=== PATIENT | female | born 1990 | race Caucasian/White ===

== ENCOUNTER → 2016-09-01 | Outpatient (CLI) | payer OTHER ==
[2016-09-01 12:49] LABS: Glucose 85 mg/dL (74-99); Non-African American GFR(MDRD) >60 (>60 ml/min/1.73 sqM)
[2016-09-01 12:58] LABS: CH 28.4; CHCM 33.1; HCT 41.2 % (34.0-46.0); HDW 2.36; HGB 13.6 gm/dL (11.4-16.0); MCH 28.4 pg (25.0-35.0); MCHC 33.1 g/dL (31.0-37.0); Mean Platelet Volume 6.8; RBC 4.79 m/uL (3.80-5.40); RDW 13.2 % (11.5-15.5); WBC 8.3 k/uL (3.8-10.6)
[2016-09-01 13:20] LABS: Hepatitis B Surface Ag Index 0.07
== END | disposition home or self-care (01) ==
LOC: LABWHC1 11:57
PROVIDERS: ATTEND Obstetrics & Gynecology
DX: Z34.01 Encounter for supervision of normal first pregnancy, first trimester (principal); Z3A.00 Weeks of gestation of pregnancy not specified
CPT/HCPCS: 36415; 82565; 82947; 85027; 86762; 86780; 86850; 86900; 86901; 87340

== ENCOUNTER → 2016-11-08 | Outpatient (CLI) | payer OTHER ==
--- NOTE | 2016-11-08 11:01 | US ---
COMPARISON: None CLINICAL HISTORY: O36.62X0 Large for dates second trimester US OB anatomy transabd DATE OF EXAM: 11/08/2016 9:42 AM COMPARISON: NONE HISTORY: LGA TECHNIQUE: Transabdominal (TA) EXAM MEASUREMENTS: GESTATIONAL AGE / DATING Physician Established: (19 weeks/0 days) EDC: 04/04/17 Dates by LMP: unknown Dates by First Scan: not available Dates by Current Scan for: (19 weeks/4 days) EDC: 03/31/17 SURVEY IUP: Single PLACENTA: Anterior PREVIA: No previa DIANE: 13.1 cm CERVICAL LENGTH (transabdominal: norm > 3.0cm): 4.0 cm BIOMETRY PRESENTATION: Vertex BPD: 4.4 cm 19 weeks / 3 days HC: 16.5 cm 19 weeks / 2 days AC: 14.4 cm 19 weeks / 6 days FL: 3.1 cm 19 weeks / 5 days ESTIMATED WEIGHT IN GRAMS: 303 grams ESTIMATED WEIGHT IN LBS/OZS: 0 lbs. 11 oz. WEIGHT PERCENTAGE BASED ON ESTABLISHED DATE:22 % HC/AC: 1.2 FL/AC: 22 HEART RATE: 163 bpm RHYTHM: Normal ANATOMY SEEN (within normal limits): * Lateral Vent (< 1 cm) 0.8 cm * Cisterna Magna (< 1.1 cm) 0.3 cm * Nuchal Fold (< 0.6 cm) 0.2 cm * Cerebellum (varies with age) 1.6 cm Choroid Plexus (bilateral) Midline Falx Cavus Septi Pellucidi Stomach Situs Kidneys (bilateral) Bladder Cord Insert Three Vessel Cord Arms (bilateral) Legs (bilateral) ANATOMY NOT SEEN: Nose / Lips Diaphragm Outflow tracts: LVOT/RVOT Four Chamber Heart Longitudinal Spine Transverse Spine MATERNAL WALL MEASUREMENT: 5.0 cm from skin to anterior uterine wall (if exam limited due to body dobson bitus). Patient coming back next week for anatomy not seen on today's scan. IMPRESSION: BESS FETUS PRESENT IN A VERTEX LIE WITH A GESTATIONAL AGE OF 19 WEEKS 4 DAYS +/- 12 DAYS. ESTIMA RONY DATE OF CONFINEMENT BASED ON THIS EXAMINATION IS 03/31/2017
== END | disposition home or self-care (01) ==
LOC: RADUSWWP 08:07
PROVIDERS: ATTEND Obstetrics & Gynecology
DX: O36.62X0 Maternal care for excessive fetal growth, second trimester, not applicable or unspecified (principal); Z3A.19 19 weeks gestation of pregnancy
CPT/HCPCS: 76811

== ENCOUNTER → 2016-11-16 | Outpatient (CLI) | payer OTHER ==
--- NOTE | 2016-11-16 08:42 | US ---
EXAMINATION TYPE: US OB Call Back DATE OF EXAM: 11/16/2016 7:53 AM COMPARISON: survey 11/08/2016 CLINICAL HISTORY: 26-year-old female 036.62XO LARGE FOR DATES, OB CALLBACK. GESTATIONAL AGE / DATING Dates by Initial Survey Scan: (20 weeks/1 days) EDC: 04/04/2017 HEART RATE: 141 bpm RHYTHM: Normal ANATOMY SEEN (second anatomic survey look): Four Chamber Heart Outflow tracts:? LVOT Nose / Lips Diaphragm Transverse Spine ANATOMY SUBOPTIMALLY VISUALIZED: Longitudinal Spine: Due to spine down positioning. However, given this positioning, skin line appear s intact and no evident abnormality is seen. RVOT: Detailed visualization is limited due to patient large body habitus. Technologist notes: While there are some technical limitations, all above structures appear within no rmal limits on real time; best obtainable images. MATERNAL WALL MEASUREMENT: 5.8 cm from skin to anterior uterine wall. IMPRESSION: A couple of the structures including the longitudinal spine and especially the RVOT remain suboptimal on the provided images; assessment remains difficult due to large body habitus. The hospital laboratory technician note s best possible images and normal appearance during real-time scanning. The remaining structures on t he rescan appear normal.
== END | disposition home or self-care (01) ==
LOC: RADUSWWP 07:30
PROVIDERS: ATTEND Obstetrics & Gynecology
DX: O36.62X0 Maternal care for excessive fetal growth, second trimester, not applicable or unspecified (principal)

== ENCOUNTER → 2016-12-20 | Outpatient (CLI) | payer OTHER ==
[2016-12-20 08:41] LABS: CH 28.2; CHCM 32.4; HCT 40.2 % (34.0-46.0); HDW 2.56; HGB 13.1 gm/dL (11.4-16.0); MCH 28.5 pg (25.0-35.0); MCHC 32.6 g/dL (31.0-37.0); MCV 87.3 fL (80.0-100.0); Mean Platelet Volume 7.2; RBC 4.61 m/uL (3.80-5.40); RDW 13.8 % (11.5-15.5)
== END | disposition home or self-care (01) ==
LOC: LABWHC1 06:58
PROVIDERS: ATTEND Obstetrics & Gynecology
DX: Z34.82 Encounter for supervision of other normal pregnancy, second trimester (principal); Z3A.00 Weeks of gestation of pregnancy not specified
CPT/HCPCS: 36415; 82950; 85027

== ENCOUNTER 2017-04-04 05:48 | Inpatient (IN) | payer OTHER ==
--- NOTE | 2017-04-04 05:40 | P.HPOB ---
History of Present Illness H&P Date: 04/04/17 Chief Complaint: Patient is requesting elective induction of labor. This patient is a pleasant 26-year-old 1 para 0 female estimated date of confinement 04/04/2017 estimated gestational age 40-0/7 weeks who presents to labor and delivery for requested induction of labor. Patient's care has been uncomplicated. Patient is uncomfortable at this time and has requested induction. Review of Systems Constitutional: Denies chills, Denies fever Cardiovascular: Denies chest pain, Denies shortness of breath Respiratory: Denies cough Gastrointestinal: Reports heartburn Genitourinary: Reports Menstruation: Reports amenorrhea Musculoskeletal: Denies myalgias Integumentary: Denies pruritus, Denies rash Neurological: Denies numbness, Denies weakness Psychiatric: Denies anxiety, Denies depression Past Medical History Past Medical History: No Reported History History of Any Multi-Drug Resistant Organisms: None Reported Additional Past Surgical History / Comment(s): Patient has had an ovarian cystectomy, uncertain of which side at age [age] years old. Past Psychological History: No Psychological Hx Reported Smoking Status: Never smoker Past Alcohol Use History: None Reported Past Drug Use History: None Reported Medications and Allergies Home Medications Medication Instructions Recorded Confirmed Type Pnv,Calcium 72/Iron/Folic Acid 1 tab PO DAILY 04/04/17 04/04/17 History [ Plus Tablet] Allergies Allergy/AdvReac Type Severity Reaction Status Date / Time No Known Allergies Allergy Verified 04/04/17 05:37 Exam - OBG Physical Exam Abdomen: bowel sounds normal (Obese, gravid), no diffuse tenderness, no bruit present, no guarding noted, no hepatomegaly, no splenomegaly, no mass Vulva: both: normal Vagina: normal moisture, no discharge Cervix: no lesion (Cervix in the office was 1 cm dilated 50% effaced.), no discharge Uterus: enlarged (Fundal height is 40 cm consistent with gestational age) Results blood work shows she is O positive, rubella immune, RPR nonreactive, hepatitis B negative, Glucola was normal, group B strep was negative, ultrasounds have been normal. Comments: Estimated weight is approximately 8 pounds. Assessment and Plan (1) Third trimester Narrative/Plan: This is a pleasant 26-year-old 1 para 0 female 40-0/7 weeks gestation who presents requesting elective induction of labor. Patient and I and her have discussed this and she wishes to proceed. Plan at this time is induction of labor and anticipate vaginal delivery. Status: Acute (2) Elective induction of labor planned Status: Acute
[2017-04-04] MEDS ORDERED: METHYLERGONOVINE 0.2 MG/ML 1 ML AMP IM PRN (05:53)
[2017-04-04] MEDS ORDERED: TERBUTALINE 1 MG/ML VIAL SQ PRN (05:53)
[2017-04-04] MEDS ORDERED: CARBOPROST TROMETHAMINE 250 MCG/ML 1 ML AMP IM PRN (05:53)
[2017-04-04] MEDS ORDERED: OXYTOCIN 10 UNIT/ML 1 ML VIAL IM PRN (05:53)
[2017-04-04] MEDS ORDERED: LIDOCAINE 1% (PF) 10 MG/ML (30 ML SDV) SQ PRN (05:53)
[2017-04-04] MEDS ORDERED: OXYTOCIN 20 UNITS/1000 ML NS 1,000 ML IV SCH ×2 (05:53→19:30)
[2017-04-04] MEDS: LACTATED RINGERS 1,000 ML IV SCH ×4 (06:04→23:44)
[2017-04-04 06:05] LABS: Basophils # (A) 0.1 k/uL (0-0.2); Basophils % (A) 1 %; CH 28.6; Eosinophils # (A) 0.1 k/uL (0-0.7); Eosinophils % (A) 1 %; HCT 40.5 % (34.0-46.0); HDW 2.51; HGB 13.2 gm/dL (11.4-16.0); Luc # (Auto) 0.22; Luc % (Auto) 2; Lymphocytes # (A) 2.2 k/uL (1.0-4.8); Lymphocytes % (A) 25 %; MCH 27.6 pg (25.0-35.0); MCHC 32.7 g/dL (31.0-37.0); MCV 84.6 fL (80.0-100.0); Mean Platelet Volume 9.1; Monocytes # (A) 0.6 k/uL (0-1.0); Monocytes % (A) 7 %; Neutrophils # (A) 5.8 k/uL (1.3-7.7); Neutrophils % (A) 64 %; RBC 4.79 m/uL (3.80-5.40); RDW 15.1 % (11.5-15.5); WBC 9.1 k/uL (3.8-10.6); WBC (Perox) 9.27
[2017-04-04 06:56] VITALS: BMI 44.9
[2017-04-04] MEDS ORDERED: BUTORPHANOL 1 MG/ML 1 ML VIAL IV PRN (11:24)
[2017-04-04] MEDS ORDERED: ePHEDrine SULFATE/0.9% NACL/PF 50 MG/5 ML SYRINGE IV ONE (14:08)
[2017-04-04] MEDS ORDERED: BUPIVACAINE (PF) 0.25% 30 ML VIAL ONE (14:08)
[2017-04-04] MEDS ORDERED: PHENYLEPHRINE-0.9% NACL SYG 1 MG/10 ML SYRINGE ONE (14:08)
[2017-04-04] MEDS ORDERED: fentaNYL (PF) 50 MCG/ML 5 ML AMP ONE (14:08)
[2017-04-04] MEDS ORDERED: MORPHINE SULFATE (PF) 0.3 MG/0.3 ML SYR ONE (14:08)
[2017-04-04] MEDS ORDERED: SODIUM CHLORIDE 0.9% 100 ML BAG ONE (14:08)
[2017-04-04] MEDS ORDERED: OXYTOCIN 10 UNIT/ML 1 ML VIAL ONE (14:08)
[2017-04-04] MEDS ORDERED: BUPIVACAINE (PF) 0.25% 25 ML, fentaNYL (PF) 200 MCG in SODIUM CHLORIDE 0.9% 71 ML EPIDURAL ONE (14:25)
[2017-04-04] MEDS ORDERED: ceFAZolin 3 GM in SODIUM CHLORIDE 0.9% 100 ML IVPB ONE (18:06)
[2017-04-04] MEDS ORDERED: CITRIC ACID-SODIUM CITRATE 15 ML CUP PO ONE (18:06)
[2017-04-04] MEDS ORDERED: ACETAMINOPHEN TAB 325 MG TAB PO PRN (19:30)
[2017-04-04] MEDS ORDERED: NALOXONE 0.4 MG/ML 1 ML VIAL IV PRN (19:30)
[2017-04-04] MEDS ORDERED: diphenhydrAMINE 50 MG/ML 1 ML VIAL IVP PRN (19:30)
[2017-04-04] MEDS ORDERED: Acetaminophen-Codeine 300-30mg TAB PO PRN ×2 (19:30)
[2017-04-04] MEDS ORDERED: ZOLPIDEM 5 MG TAB PO PRN (19:30)
[2017-04-04] MEDS ORDERED: METOCLOPRAMIDE 5 MG/ML 2 ML VIAL IVP PRN (19:30)
[2017-04-04] MEDS ORDERED: ONDANSETRON 4 MG/2 ML VIAL IVP PRN (19:30)
[2017-04-04] MEDS ORDERED: SIMETHICONE 80 MG CHEWABLE PO PRN (19:30)
[2017-04-04] MEDS ORDERED: diphenhydrAMINE 25 MG CAP PO PRN (19:30)
--- NOTE | 2017-04-04 19:47 | P.OP ---
Date of Procedure: 04/04/17 Preoperative Diagnosis: #1: 40-0/7 weeks . #2: Failure to progress in labor. #3: Mild meconium-stained fluid. Postoperative Diagnosis: #1: Same. #2: Nuchal cord 1. #3: macrosomia. Procedure(s) Performed: Primary low transverse section Implants: Anesthesia: spinal (Patient had a slightly high spinal that did require some assisted respiration per the nurse flexographic press operator.) Surgeon: Meir Gaitan Assembly Repairer #1: Janis Johnson Estimated Blood Loss (ml): 1,000 Pathology: other (Placenta) Condition: stable Disposition: floor Indications for Procedure: Please see dictated H&P for intimate details of this patient's admission. In brief summary this is a pleasant 26-year-old 1 para 0 female 40-0/7 weeks gestation who is admitted to labor and delivery for requested induction of labor. On admission patient is 2 cm dilated. She is artificial rupture membranes for mild meconium-stained fluid. heart tones are reassuring. Labor is induced with Pitocin per protocol. Despite adequate labor this patient does not progress beyond 4-5 cm dilated. I discussed with the patient management at this time we elected proceed with section for delivery. Patient does understand the surgery and risks including risks of infection, bleeding, possible injury to bowel, bladder, vessels, and/or other organs. Patient understands risk of DVT and pulmonary embolism. All the patient's questions are answered and a written consent is obtained. Operative Findings: This was a vigorous viable female infant Apgars 9 and 9 delivery time is 1841 hrs. had a nuchal cord 1. This was loose. Infant weight 8 lbs. 11 oz. Description of Procedure: This patient has a Velasquez catheter placed to straight drain. She subsequent taken to the operating room and after the appropriate timeout, spinal anesthesia is administered. With an adequate level of anesthesia she has abdominal prep and drape. Scalpels and taken Pfannenstiel skin incision is then made. A second scalpel is taken down to the fascia. Fascia scored with a scalpel and the fascial incision extended bilaterally using the Brown scissors. Fascia is then dissected sharply off the rectus muscles. Rectus muscles are and the peritoneum identified and entered sharply. Peritoneal incision extended superior and inferior without difficulty. Bladder blade is then placed. Bladder peritoneum taken sharply off the lower uterine segment. Scalpels and taken a low transverse uterine incision is then made. Using a hemostat I gently into the uterine cavity is loss of clear with slightly meconium colored fluid. This incision extended bluntly. 's head is then gently guided through the incision with fundal pressure. Nuchal cord 1 is reduced. We then have delivery the anterior and posterior shoulder and rest this 's body. This is a vigorous viable female infant Apgars are 9 and 9 delivery time is 1841 hrs. After delivery of the the umbilical cord is doubly clamped and cut. It appears to be trivascular. The placenta is then manually extracted intact. Uterus is then externalized and the uterine incision demarcated with Shahid clamps and then closed using 0 Vicryl running locked fashion 2 layers. Excellent hemostasis is noted. The bladder peritoneum was then closed using a 3-0 Vicryl. Excess fluid was removed from the abdomen and pelvis. Uterus, tubes, ovaries all appear normal for term gestation. Uterus is placed back into the abdomen. The parietal peritoneum was then identified and closed using 0 Vicryl running fashion. Rectus muscles reapproximated in 0 Vicryl interrupted fashion. Fascia is then closed using 0 PDS. Fascial incision is intact and hemostatic. Subcutaneous tissues and closed using a 3-0 Vicryl. Skin is and closed using asher. All counts are correct 3. There are no complications. The mother did have a slightly high spinal which was already wearing off at the end of the case however be watched in the operating room until it wears off sufficiently for her to be taken back to her room.
[2017-04-04] MEDS: SENNOSIDES-DOCUSATE SODIUM 1 EACH TAB PO SCH (21:21)
[2017-04-04] MEDS: KETOROLAC 30 MG/ML 1 ML VIAL IVP PRN (22:30)
[2017-04-04] MEDS: ceFAZolin 3 GM in SODIUM CHLORIDE 0.9% 100 ML IVPB SCH (23:44)
--- NOTE | 2017-04-05 06:31 | P.PNOBGPC ---
Subjective - Subjective Patient reports: Reports appetite normal, Reports voiding normally, Reports pain well controlled, Reports ambulating normally : doing well Objective - Vital Signs Latest vital signs: Vital Signs Temp Pulse Resp BP Pulse Ox 04/05/17 04:00 97.7 F 88 16 121/76 96 04/05/17 00:00 97.5 F L 71 16 114/63 96 04/04/17 21:25 97.7 F 94 16 125/69 100 04/04/17 20:55 91 16 124/69 99 04/04/17 20:25 96.8 F L 89 16 124/60 98 04/04/17 20:10 81 16 117/58 99 04/04/17 19:55 97.8 F 89 16 106/52 99 04/04/17 19:40 103 H 16 102/50 98 04/04/17 19:25 89 16 99/50 95 04/04/17 06:49 108 H 16 125/81 Intake and Output 04/04/17 04/04/17 04/05/17 14:59 22:59 06:59 Intake Total 1000 1600 Output Total 2950 200 Balance 1000 -1350 -200 Intake: IV 1200 Intake, IV Titration 1000 400 Amount Lactated Ringers 1,000 ml 1000 @ 125 mls/hr IV .Q8H DEON Rx#:[id number] Oxytocin 20 Units/1000 ml 400 Ns 1,000 ml @ 1 MILLIUNIT/MIN 3 mls/hr IV .Q24H DEON Rx#:[id number] Output: Urine 250 200 Emesis 700 Estimated Blood Loss 2000 - Exam Lungs: bilateral: normal Chest: Normal S1, Normal S2 Extremities: Present: normal Abdomen: Present: normal appearance, soft. Absent: distention, tenderness Incision: Present: normal, dry, intact Uterus: Present: normal, firm Assessment and Plan (1) Third trimester Narrative/Plan: Patient is resting without complaints. Vital signs are stable she's afebrile. Uterus is firm nontender and her incision is intact and dry. She's having normal lochia. CBC is pending at time of this dictation. Plan is to advance to regular diet, check CBC, encourage ambulation, discontinue her catheter. We' ll continue routine postoperative care at this time. Current Visit: Yes Status: Acute Code(s): Z34.93 - ENCNTR FOR SUPRVSN OF NORMAL PREG, UNSP, THIRD TRIMESTER SNOMED Code(s): 73428957 (2) Elective induction of labor planned Current Visit: Yes Status: Acute Code(s): PFM5592 - SNOMED Code(s): 878116472
[2017-04-05 08:00] LABS: Basophils % (A) 0 %; CH 27.2; CHCM 31.9; Eosinophils % (A) 0 %; HCT 31.8 % (34.0-46.0); HDW 2.54; HGB 10.3 gm/dL (11.4-16.0); Luc # (Auto) 0.29; Luc % (Auto) 3; Lymphocytes # (A) 2.1 k/uL (1.0-4.8); Lymphocytes % (A) 18 %; MCH 27.8 pg (25.0-35.0); MCHC 32.4 g/dL (31.0-37.0); MCV 85.7 fL (80.0-100.0); Mean Platelet Volume 7.9; Monocytes # (A) 0.9 k/uL (0-1.0); Monocytes % (A) 8 %; Neutrophils # (A) 8.3 k/uL (1.3-7.7); Neutrophils % (A) 72 %; RBC 3.71 m/uL (3.80-5.40); RDW 14.4 % (11.5-15.5); WBC 11.6 k/uL (3.8-10.6); WBC (Perox) 12.26
[2017-04-05] MEDS: KETOROLAC 30 MG/ML 1 ML VIAL IVP PRN (08:11)
[2017-04-05] MEDS: ceFAZolin 3 GM in SODIUM CHLORIDE 0.9% 100 ML IVPB SCH (08:11)
[2017-04-05] MEDS: SENNOSIDES-DOCUSATE SODIUM 1 EACH TAB PO SCH ×2 (08:11→22:09)
--- NOTE | 2017-04-05 10:06 | P.PN ---
Progress Note - Text Date: 04/05/2017 Time: 709 The patient is status post section Vital signs stable VAS:0-10 Patient has no complaints of pain. The patient incurred some minimal itching yesterday, this itching is now subsiding. Pain meds to be managed by service.
[2017-04-05] MEDS: IBUPROFEN 600 MG TAB PO PRN (18:04)
[2017-04-05] MEDS: LACTATED RINGERS 1,000 ML IV SCH ×2 (22:39→22:41)
[2017-04-06] MEDS: IBUPROFEN 600 MG TAB PO PRN ×2 (00:13→06:41)
--- NOTE | 2017-04-06 06:07 | P.PNOBGPC ---
Subjective - Subjective Patient reports: Reports appetite normal, Reports voiding normally, Reports pain well controlled, Reports ambulating normally [place]: doing well Objective - Vital Signs Latest vital signs: Vital Signs Temp Pulse Resp BP Pulse Ox 04/06/17 00:00 98.2 F 102 H 16 115/62 04/05/17 20:00 98.5 F 93 16 109/59 04/05/17 16:00 97.8 F 86 16 87/45 98 04/05/17 12:00 98.3 F 82 15 104/65 04/05/17 08:00 98.1 F 86 16 121/64 98 Intake and Output 04/05/17 04/05/17 04/06/17 14:59 22:59 06:59 Output Total 400 400 Balance -400 -400 Output: Urine 400 400 Other: # Voids 1 1 1 # Bowel Movements 1 - Exam Lungs: bilateral: normal Chest: Normal S1, Normal S2 Extremities: Present: normal Abdomen: Present: normal appearance, soft. Absent: distention, tenderness Incision: Present: normal, dry, intact Uterus: Present: normal, firm - Labs Labs: Abnormal Lab Results - Last 24 Hours (Table) 04/05/17 Range/Units 07:12 WBC 11.6 H (3.8-10.6) k/uL RBC 3.71 L (3.80-5.40) m/uL Hgb 10.3 L (11.4-16.0) gm/dL Hct 31.8 L (34.0-46.0) % Neutrophils # 8.3 H (1.3-7.7) k/uL Assessment and Plan (1) Third trimester Narrative/Plan: Postoperative day #2. Patient is resting without complaints. Vital signs are stable she's afebrile. Uterus is firm nontender she's having normal lochia. Incision is intact and dry. Patient wishes to go home today. She is tolerating regular diet ambulating and urinating without difficulty and felt to be stable for discharge home. Current Visit: Yes Status: Acute Code(s): Z34.93 - ENCNTR FOR SUPRVSN OF NORMAL PREG, UNSP, THIRD TRIMESTER SNOMED Code(s): 38499989 (2) Elective induction of labor planned Current Visit: Yes Status: Acute Code(s): [id number] - SNOMED Code(s): 525587410
--- NOTE | 2017-04-06 06:08 | P.DS ---
Providers Date of admission: 04/04/17 05:48 Expected date of discharge: 04/06/17 Attending physician: Meir Gaitan Primary care physician: Stated None - Discharge Diagnosis(es) (1) Third trimester Current Visit: Yes Status: Acute (2) Elective induction of labor planned Current Visit: Yes Status: Acute Hospital Course: Please see dictated H&P for intimate details of this patient's admission. Brief summary this is a pleasant 26-year-old 1 para 0 female 40 weeks gestation admitted to labor and delivery for induction of labor. Patient's subsequent goes a primary low transverse section for failure to progress. Please see dictated operative note. On postoperative #2 patient's felt be stable for discharge home follow up with me in 1 week. Patient Condition at Discharge: Good Plan - Discharge Summary New Discharge Prescriptions: New Acetaminophen-Codeine 300-30mg [Tylenol w/codeine #3] 1 - 2 each PO Q4HR PRN #40 tab PRN Reason: Mild Pain Ibuprofen [Motrin] 600 mg PO Q6HR PRN #40 tab PRN Reason: Mild Pain Or Fever >= 100.5 No Action Pnv,Calcium 72/Iron/Folic Acid [ Plus Tablet] 1 tab PO DAILY Discharge Medication List Pnv,Calcium 72/Iron/Folic Acid [ Plus Tablet] 1 tab PO DAILY 04/04/17 [ History] Acetaminophen-Codeine 300-30mg [Tylenol w/codeine #3] 1 - 2 each PO Q4HR PRN # 40 tab 04/06/17 [Rx] Ibuprofen [Motrin] 600 mg PO Q6HR PRN #40 tab 04/06/17 [Rx] Follow up Appointment(s)/Referral(s): Meir Gaitan MD [STAFF PHYSICIAN] - 05/15/17 8:30 am (Please see me in 1-2 weeks for an incision check.) Patient Instructions/Handouts: (DC) Activity/Diet/Wound Care/Special Instructions: No intercourse or anything per vagina for 6 weeks. No strenuous activity or heavy lifting for 6 weeks. Please call if any fever, chills, excessive vaginal bleeding, and/or abdominal pain. Discharge Disposition: HOME SELF-CARE
[2017-04-06 09:45] VITALS: BP 104/68; PULSE 93; RESP 15; TEMP 98.9
[2017-04-06] MEDS: SENNOSIDES-DOCUSATE SODIUM 1 EACH TAB PO SCH (10:03)
== END 2017-04-06 10:00 | disposition home or self-care (01) | DRG 766 ==
LOC: 4FBP 05:48
PROVIDERS: ADMIT Obstetrics & Gynecology; ATTEND Obstetrics & Gynecology
PROC: 3E033VJ Introduction of Other Hormone into Peripheral Vein, Percutaneous Approach (ICD-10-PCS; 2017-04-04)
PROC: 10907ZC Drainage of Amniotic Fluid, Therapeutic from Products of Conception, Via Natural or Artificial Opening (ICD-10-PCS; 2017-04-04)
PROC: 3E0S3NZ Introduction of Analgesics, Hypnotics, Sedatives into Epidural Space, Percutaneous Approach (ICD-10-PCS; 2017-04-04)
PROC: 10D00Z1 Extraction of Products of Conception, Low, Open Approach (ICD-10-PCS; principal; 2017-04-04 06:07)
DX: O48.0 Post-term pregnancy (principal); K21.9 Gastro-esophageal reflux disease without esophagitis; O36.63X0 Maternal care for excessive fetal growth, third trimester, not applicable or unspecified; O77.0 Labor and delivery complicated by meconium in amniotic fluid; O69.81X0 Labor and delivery complicated by cord around neck, without compression, not applicable or unspecified; O99.62 Diseases of the digestive system complicating childbirth; O61.0 Failed medical induction of labor; O62.2 Other uterine inertia; Z37.0 Single live birth; Z3A.40 40 weeks gestation of pregnancy
CPT/HCPCS: 85025; 86850; 86900; 86901; 88307

== ENCOUNTER → 2017-12-13 | Outpatient (CLI) | payer OTHER | END | disposition home or self-care (01) | LOC: LABWHC1 10:39 | PROVIDERS: ATTEND Obstetrics & Gynecology | DX: Z34.80 Encounter for supervision of other normal pregnancy, unspecified trimester (principal); Z3A.00 Weeks of gestation of pregnancy not specified | CPT/HCPCS: 36415; 84702 ==

== ENCOUNTER → 2017-12-15 | Outpatient (CLI) | payer OTHER | END | disposition home or self-care (01) | LOC: LABWHC1 06:49 | PROVIDERS: ATTEND Obstetrics & Gynecology | DX: Z34.80 Encounter for supervision of other normal pregnancy, unspecified trimester (principal) | CPT/HCPCS: 36415; 84702 ==

== ENCOUNTER → 2017-12-18 | Outpatient (CLI) | payer OTHER | END | disposition home or self-care (01) | LOC: LABWHC1 07:02 | PROVIDERS: ATTEND Obstetrics & Gynecology | DX: O03.9 Complete or unspecified spontaneous abortion without complication (principal) | CPT/HCPCS: 36415; 84702 ==

== ENCOUNTER 2018-12-05 08:49 | Inpatient (IN) | payer OTHER ==
[2018-12-05] MEDS ORDERED: LACTATED RINGERS 1,000 ML IV ONE (08:55)
[2018-12-05] MEDS ORDERED: CITRIC ACID-SODIUM CITRATE 15 ML CUP PO ONE (08:55)
[2018-12-05 09:43] VITALS: BMI 41.5
[2018-12-05 09:52] LABS: Basophils % (A) 0 %; Eosinophils # (A) 0.1 k/uL (0-0.7); Eosinophils % (A) 1 %; HCT 39.3 % (34.0-46.0); HGB 13.2 gm/dL (11.4-16.0); Lymphocytes # (A) 2.2 k/uL (1.0-4.8); Lymphocytes % (A) 25 %; MCH 27.8 pg (25.0-35.0); MCHC 33.7 g/dL (31.0-37.0); MCV 82.4 fL (80.0-100.0); Mean Platelet Volume 7.8; Monocytes # (A) 0.5 k/uL (0-1.0); Monocytes % (A) 6 %; Neutrophils # (A) 5.4 k/uL (1.3-7.7); Neutrophils % (A) 64 %; Platelet Count 270 k/uL (150-450); RBC 4.77 m/uL (3.80-5.40); RDW 14.7 % (11.5-15.5); WBC 8.5 k/uL (3.8-10.6)
[2018-12-05] MEDS ORDERED: ceFAZolin IN SWFI 2 GM/20 ML SYRINGE IVP ONE (11:30)
[2018-12-05] MEDS ORDERED: OXYTOCIN 10 UNIT/ML 1 ML VIAL ONE (11:51)
[2018-12-05] MEDS ORDERED: PHENYLEPHRINE-0.9% NACL SYG 1 MG/10 ML SYRINGE ONE (11:51)
[2018-12-05] MEDS ORDERED: MORPHINE SULFATE (PF) 0.3 MG/0.3 ML SYR ONE (11:51)
[2018-12-05] MEDS ORDERED: NALBUPHINE 10 MG/ML (1 ML AMP) ONE (11:51)
[2018-12-05] MEDS ORDERED: ePHEDrine SULFATE/0.9% NACL/PF 50 MG/5 ML SYRINGE IV ONE (11:51)
[2018-12-05] MEDS ORDERED: NALBUPHINE 10 MG/ML (1 ML AMP) IV PRN (12:15)
[2018-12-05] MEDS ORDERED: NALOXONE 0.4 MG/ML 1 ML VIAL IV PRN (12:15)
[2018-12-05] MEDS ORDERED: MORPHINE SULFATE 4 MG/ML SYRINGE IVP PRN (12:15)
[2018-12-05] MEDS ORDERED: ONDANSETRON 4 MG/2 ML VIAL IVP PRN (12:15)
[2018-12-05] MEDS ORDERED: METOCLOPRAMIDE 5 MG/ML 2 ML VIAL IVP PRN (12:33)
[2018-12-05] MEDS ORDERED: LANOLIN CREAM 5 GM TUBE TOPICAL PRN (12:33)
[2018-12-05] MEDS ORDERED: ZOLPIDEM 5 MG TAB PO PRN (12:33)
[2018-12-05] MEDS ORDERED: HYDROcodone/APAP 5-325MG 1 EACH TAB PO PRN (12:33)
[2018-12-05] MEDS ORDERED: diphenhydrAMINE 50 MG/ML 1 ML VIAL IVP PRN (12:33)
[2018-12-05] MEDS ORDERED: ACETAMINOPHEN TAB 325 MG TAB PO PRN (12:33)
[2018-12-05] MEDS ORDERED: diphenhydrAMINE 25 MG CAP PO PRN (12:33)
[2018-12-05] MEDS ORDERED: SIMETHICONE 80 MG CHEWABLE PO PRN (12:33)
--- NOTE | 2018-12-05 12:39 | P.HPOB ---
History of Present Illness H&P Date: 12/05/18 Chief Complaint: Vaginal bleeding and leaking of fluid This patient is a pleasant 28-year-old 3 para 1 female estimated date of confinement 12/13/2018 estimated gestational age 38-6/7 weeks who presented to my office earlier this morning with complaints of vaginal bleeding and was found to have gross rupture membranes at about 6:15 this morning. care has been uncomplicated. She does have a history of a previous section as requested a repeat section. She does request a tubal ligation if it is a male fetus although she does not know the sex. Patient's has been otherwise uncomplicated. Review of Systems Genitourinary: Reports Menstruation: Reports amenorrhea Past Medical History Past Medical History: No Reported History History of Any Multi-Drug Resistant Organisms: None Reported Past Surgical History: Section Additional Past Surgical History / Comment(s): Patient has had an ovarian cystectomy, uncertain of which side at age [age] years old. Past Anesthesia/Blood Transfusion Reactions: No Reported Reaction Past Psychological History: No Psychological Hx Reported Smoking Status: Never smoker Past Alcohol Use History: None Reported Past Drug Use History: None Reported - Past Family History Mother Family Medical History: No Reported History Father Family Medical History: Hypertension Medications and Allergies Home Medications Medication Instructions Recorded Confirmed Type Pnv,Calcium 72/Iron/Folic Acid 1 tab PO DAILY 04/04/17 12/05/18 History [ Plus Tablet] Calcium Carbonate/Vitamin D3 1 each PO DAILY 12/05/18 12/05/18 History [Calcium 500-Vit D3 200 Tablet] Allergies Allergy/AdvReac Type Severity Reaction Status Date / Time No Known Allergies Allergy Verified 04/04/17 05:53 Exam Vital Signs Temp Pulse Resp BP Pulse Ox 12/05/18 09:25 98.1 F 86 18 124/79 98 Intake and Output 12/04/18 12/05/18 12/05/18 22:59 06:59 14:59 Other: Weight 109.769 kg - OBG Physical Exam Abdomen: bowel sounds normal, no diffuse tenderness, no bruit present, no guard ing noted, no hepatomegaly, no splenomegaly, no mass Vulva: both: normal Vagina: There is copious clear fluid in the vagina Vagina: no discharge Cervix: no lesion (Cervix is closed), no discharge Uterus: enlarged (Fundal height is 39 cm) Results blood work shows she is oh positive, rubella immune, RPR nonreactive, hepatitis B negative, group B strep is negative, Glucola was normal, ultrasounds have been normal. Result Diagrams: 12/05/18 09:05 Assessment and Plan Assessment: This is a pleasant 28-year-old 3 para 1 female 38-6/7 weeks gestation with spontaneous rupture membranes and previous section desires repeat. Plan at this time is repeat low transverse section. Patient does request a tubal ligation if it is a male fetus. Patient understands this surgery and risks including risks of infection, bleeding, possible injury bowel, bladder, vessels, and/or others organs. Patient seems risk of DVT and pulmonary embolism. All the patient's questions are answered written consent is obtained. (1) 39 weeks gestation of Current Visit: Yes Status: Acute Code(s): Z3A.39 - 39 WEEKS GESTATION OF SNOMED Code(s): 59302590 (2) Spontaneous rupture of amniotic membranes Current Visit: Yes Status: Acute Code(s): UDL0322 - SNOMED Code(s): 144507566 (3) Previous delivery affecting Current Visit: Yes Status: Acute Code(s): O34.219 - MATERNAL CARE FOR UNSP TYPE SCAR FROM PREVIOUS DEL SNOMED Code(s): 916040926
--- NOTE | 2018-12-05 12:44 | P.OP ---
Date of Procedure: 12/05/18 Preoperative Diagnosis: #1: 38-6/7 week . #2: Spontaneous rupture membranes. #3: Previous section desires repeat Postoperative Diagnosis: Same Procedure(s) Performed: Repeat low transverse section. Anesthesia: spinal Surgeon: Meir Gaitan [employer] Teacher #1: Chester Pickett Estimated Blood Loss (ml): 600 Pathology: none sent Condition: stable Disposition: floor Indications for Procedure: Please see dictated H&P for intimate details of this patient's admission. Brief summary this pleasant 28-year-old 3 para 1 female 38-6/7 weeks gestation with spontaneous rupture membranes and previous section. Patient und erstands this surgery and risks. Patient also requesting tubal ligation if it was a male fetus. Operative Findings: Vigorous viable female infant Apgars are 9 and 9 delivery time was 1209 hrs. Tubes and ovaries and uterus appeared normal. The lower uterine segment was thin. Description of Procedure: This patient has a Velasquez catheter placed to straight drain. She is subsequently taken to the operating room where she sat up and spinal anesthetic is administered without incident. With adequate level of anesthesia she has abdominal prep and drape. Scalpels and taken previous Pfannenstiel skin incision is incised. A second scalpel is taken down to the fascia the fascia scored with a knife. Fascial incision extended bilaterally using the Brown scissors. Fascia is then dissected sharply off the rectus muscles. Rectus muscles are the peritoneum identified and entered sharply. Peritoneal incision extended superior and inferior without difficulty. Bladder blade is then placed. Of note the lower uterine segment does appear thin. Careful dissection of the bladder peritoneum off the lower uterine segment is done. Scalpels then taken a low transverse uterine incision is then made. Using a hemostat I enter the uterine cavity and there is loss of clear fluid. This is extended bluntly. The 's head is then guided through the incision with fundal pressure delivered. Mouth and nares are bulb suctioned. There is no evidence of a nuchal cord easily then have delivery the anterior and posterior shoulder and rest this infant's body. This is a vigorous viable female Apgars are 9 and 9 delivery time was 1209 hrs. After delivery of the infant the umbilical cords doubly clamped and cut appears to be trivascular. The placenta is manually extracted intact. Uterus is then externalized and the uterine edges demarcated with Shahid clamps. Again noted is the thin lower uterine segment which is reapproximated using a 0 Vicryl in 2 layers as best as possible. I did try to sure this up as best as could. At this point excellent hemostasis is noted. I remove excess fluid from the abdomen and pelvis and uterus placed back into the abdomen. Parietal peritoneum was then closed using 0 Vicryl running fashion. Rectus muscle reapproximate 0 Vicryl interrupted fashion. Fascia is then closed using 0 PDS. Fascial incision is intact and hemostatic. Subcutaneous tissues and inspected and found to be hemostatic. Is and closed using a 3-0 Vicryl. Skin is and closed using asher. Good reapprox imation is noted all counts are correct 3. There are no complications. and mother are stable in delivery room.
[2018-12-05] MEDS ORDERED: OXYTOCIN 20 UNITS/1000 ML NS 1,000 ML IV SCH (12:45)
[2018-12-05] MEDS: KETOROLAC 30 MG/ML 1 ML VIAL IVP PRN (19:39)
[2018-12-05] MEDS: LACTATED RINGERS 1,000 ML IV SCH (21:01)
[2018-12-05] MEDS: SENNOSIDES-DOCUSATE SODIUM 1 EACH TAB PO SCH (21:01)
[2018-12-06] MEDS: KETOROLAC 30 MG/ML 1 ML VIAL IVP PRN ×2 (03:59→10:55)
--- NOTE | 2018-12-06 06:25 | P.PNOBGPC ---
Subjective - Subjective Patient reports: Reports appetite normal, Reports voiding normally, Reports pain well controlled, Reports ambulating normally : doing well Objective - Vital Signs Latest vital signs: Vital Signs Temp Pulse Resp BP Pulse Ox 12/06/18 04:00 98.4 F 65 18 107/57 98 12/06/18 02:00 16 98 12/06/18 00:00 98.2 F 67 18 108/61 96 12/05/18 22:00 18 12/05/18 21:00 97 12/05/18 20:00 97.8 F 81 16 115/69 97 12/05/18 17:15 96 12/05/18 17:00 20 12/05/18 15:34 97.7 F 73 16 108/55 95 12/05/18 15:33 97.7 F 73 16 108/55 12/05/18 14:32 97.8 F 68 16 111/59 96 12/05/18 14:02 97.7 F 71 18 106/64 98 12/05/18 13:32 97.4 F L 75 18 96/51 98 12/05/18 13:17 97.4 F L 71 17 97/52 98 12/05/18 13:15 16 98 12/05/18 13:02 81 18 95/55 12/05/18 12:47 81 18 98/57 96 12/05/18 12:32 98.2 F 101 H 18 92/52 98 12/05/18 09:25 98.1 F 86 18 124/79 98 Intake and Output 12/05/18 12/05/18 12/06/18 14:59 22:59 06:59 Intake Total 1000 600 Output Total 200 450 250 Balance 800 150 -250 Intake: Intake, IV Titration 1000 Amount Lactated Ringers 1,000 ml 1000 @ 4000 mls/hr IV .Q15M ONE Rx#:[id number] Oral 600 Output: Urine 200 450 250 Uretheral (Velasquez) 450 Other: Voiding Method Indwelling Catheter Weight 109.769 kg - Exam Lungs: bilateral: normal Chest: Normal S1, Normal S2 Extremities: Present: normal Abdomen: Present: normal appearance, soft. Absent: distention, tenderness Incision: Present: normal, dry, intact Uterus: Present: normal, firm Assessment and Plan Assessment: Postoperative day #1. Patient is resting without complaints. Vital signs are stable she's afebrile. Uterus is firm nontender and she is having normal lochia. CBC is pending at time of this dictation. Plan today is to allow the patient to shower, encourage ambulation, advanced to a regular diet, and check a CBC. Continue routine postoperative care. (1) 39 weeks gestation of Current Visit: Yes Status: Acute Code(s): Z3A.39 - 39 WEEKS GESTATION OF SNOMED Code(s): 39867631 (2) Spontaneous rupture of amniotic membranes Current Visit: Yes Status: Acute Code(s): NLP9530 - SNOMED Code(s): 794593532 (3) Previous delivery affecting Current Visit: Yes Status: Acute Code(s): O34.219 - MATERNAL CARE FOR UNSP TYPE SCAR FROM PREVIOUS DEL SNOMED Code(s): 374041637
[2018-12-06] MEDS: LACTATED RINGERS 1,000 ML IV SCH (06:54)
[2018-12-06 06:59] LABS: Basophils % (A) 0 %; Eosinophils # (A) 0.1 k/uL (0-0.7); Eosinophils % (A) 1 %; HCT 41.1 % (34.0-46.0); HGB 13.1 gm/dL (11.4-16.0); Lymphocytes # (A) 1.8 k/uL (1.0-4.8); Lymphocytes % (A) 19 %; MCH 27.3 pg (25.0-35.0); MCHC 31.9 g/dL (31.0-37.0); MCV 85.6 fL (80.0-100.0); Mean Platelet Volume 7.7; Monocytes # (A) 0.6 k/uL (0-1.0); Monocytes % (A) 6 %; Neutrophils # (A) 6.6 k/uL (1.3-7.7); Neutrophils % (A) 72 %; Platelet Count 232 k/uL (150-450); RBC 4.81 m/uL (3.80-5.40); RDW 14.1 % (11.5-15.5); WBC 9.3 k/uL (3.8-10.6)
--- NOTE | 2018-12-06 07:49 | P.PN ---
Progress Note - Text Anesthesia POD 1. Patient is status post section under spinal anesthesia with intra-thecal preservative free morphine 300 g. Mild pruritus, excellent post-op analgesia, and no headache or other complications.
[2018-12-06] MEDS: SENNOSIDES-DOCUSATE SODIUM 1 EACH TAB PO SCH ×2 (08:00→21:00)
[2018-12-06 09:10] VITALS: RESP 16
[2018-12-06] MEDS: IBUPROFEN 600 MG TAB PO PRN ×2 (18:28→23:49)
--- NOTE | 2018-12-07 06:02 | P.PNOBGPC ---
Subjective - Subjective Patient reports: Reports appetite normal, Reports voiding normally, Reports pain well controlled, Reports ambulating normally : doing well Objective - Vital Signs Latest vital signs: Vital Signs Temp Pulse Resp BP Pulse Ox 12/07/18 00:00 98.3 F 70 16 107/69 12/06/18 16:00 98.1 F 65 16 95/56 97 12/06/18 14:00 16 97 12/06/18 12:00 98.7 F 73 16 97/58 97 12/06/18 10:00 98.7 F 73 16 97/58 97 12/06/18 08:00 97.6 F 77 16 109/65 97 Intake and Output 12/06/18 12/06/18 12/07/18 14:59 22:59 06:59 Intake Total 500 Output Total 1 Balance 499 Intake: Oral 500 Output: Urine 1 Other: # Voids 2 - Exam Lungs: bilateral: normal Chest: Normal S1, Normal S2 Extremities: Present: normal Abdomen: Present: normal appearance, soft. Absent: distention, tenderness Incision: Present: normal, dry, intact Uterus: Present: normal, firm Assessment and Plan Assessment: Postoperative day #2. Patient is resting without complaints and wishes to go home. Vital signs are stable she is afebrile. Uterus is firm nontender she's having normal lochia. Incision is intact and dry. CBC from yesterday was normal. Patient is tolerating regular diet, ambulating, urinating without difficulty. Plan today is to continue routine care discharge home. (1) 39 weeks gestation of Current Visit: Yes Status: Acute Code(s): Z3A.39 - 39 WEEKS GESTATION OF SNOMED Code(s): 28071759 (2) Spontaneous rupture of amniotic membranes Current Visit: Yes Status: Acute Code(s): WBC9095 - SNOMED Code(s): 713419882 (3) Previous delivery affecting Current Visit: Yes Status: Acute Code(s): O34.219 - MATERNAL CARE FOR UNSP TYPE SCAR FROM PREVIOUS DEL SNOMED Code(s): 127771455
--- NOTE | 2018-12-07 06:11 | P.DS ---
Providers Date of admission: 12/05/18 08:49 Expected date of discharge: 12/07/18 Attending physician: Meir Gaitan Primary care physician: Stated None - Discharge Diagnosis(es) (1) 39 weeks gestation of Current Visit: Yes Status: Acute (2) Spontaneous rupture of amniotic membranes Current Visit: Yes Status: Acute (3) Previous delivery affecting Current Visit: Yes Status: Acute Hospital Course: Please see dictated H&P for intimate details of this patient's admission. Brief summary is a pleasant 28-year-old 3 para 1 female 38-6/7 weeks gestation admitted with spontaneous rupture membranes previous section. Patient undergoes a repeat low transverse section for viable female . Please see dictated operative note. Postoperative day #2 patient wishes to go home felt be stable for discharge home follow up with me in 1 week. Procedures: Repeat low transverse section Patient Condition at Discharge: Good Plan - Discharge Summary Discharge Rx Participant: No New Discharge Prescriptions: New Ibuprofen [Motrin] 600 mg PO Q6HR PRN #40 tab PRN Reason: Mild Pain Or Fever >= 100.5 HYDROcodone/APAP 5-325MG [[place] 5-325] 1 each PO Q4HR PRN #18 tab PRN Reason: Moderate Pain No Action Pnv,Calcium 72/Iron/Folic Acid [ Plus Tablet] 1 tab PO DAILY Calcium Carbonate/Vitamin D3 [Calcium 500-Vit D3 200 Tablet] 1 each PO DAILY Discharge Medication List Pnv,Calcium 72/Iron/Folic Acid [ Plus Tablet] 1 tab PO DAILY 04/04/17 [History] Calcium Carbonate/Vitamin D3 [Calcium 500-Vit D3 200 Tablet] 1 each PO DAILY 12/05/18 [History] HYDROcodone/APAP 5-325MG [[place] 5-325] 1 each PO Q4HR PRN #18 tab 12/07/18 [Rx] Ibuprofen [Motrin] 600 mg PO Q6HR PRN #40 tab 12/07/18 [Rx] Follow up Appointment(s)/Referral(s): Meir Gaitan MD [STAFF PHYSICIAN] - 12/18/18 8:45 am (Patient also has a visit on January 30 at 9:45 AM.) Patient Instructions/Handouts: (DC) Activity/Diet/Wound Care/Special Instructions: No heavy lifting or strenuous activity for 6 weeks. No intercourse or anything per vagina for 6 weeks. Please call if any fever, chills, excessive vaginal bleeding, and/or abdominal pain. Discharge Disposition: HOME SELF-CARE
[2018-12-07] MEDS: SENNOSIDES-DOCUSATE SODIUM 1 EACH TAB PO SCH (08:10)
[2018-12-07] MEDS: IBUPROFEN 600 MG TAB PO PRN (08:10)
[2018-12-07 13:14] VITALS: BP 116/64; PULSE 81; TEMP 98.4
== END 2018-12-07 10:52 | disposition home or self-care (01) | DRG 788 ==
LOC: 4FBP 08:49
PROVIDERS: ADMIT Obstetrics & Gynecology; ATTEND Obstetrics & Gynecology
PROC: 10D00Z1 Extraction of Products of Conception, Low, Open Approach (ICD-10-PCS; principal; 2018-12-05 12:00)
DX: O75.82 Onset (spontaneous) of labor after 37 completed weeks of gestation but before 39 completed weeks gestation, with delivery by (planned) cesarean section (principal); O34.211 Maternal care for low transverse scar from previous cesarean delivery; K21.9 Gastro-esophageal reflux disease without esophagitis; O99.62 Diseases of the digestive system complicating childbirth; N85.8 Other specified noninflammatory disorders of uterus; L29.9 Pruritus, unspecified; Z3A.38 38 weeks gestation of pregnancy; Z37.0 Single live birth; Z79.899 Other long term (current) drug therapy; Z82.49 Family history of ischemic heart disease and other diseases of the circulatory system
CPT/HCPCS: 85025; 86850; 86900; 86901

== ENCOUNTER → 2021-02-05 | Outpatient (CLI) | payer OTHER ==
[2021-02-05 18:41] LABS: HCT 39.2 % (37.2-46.3); HGB 12.8 g/dL (12.0-15.0); MCH 28.8 pg (27.0-32.0); MCHC 32.7 g/dL (32.0-37.0); MCV 88.1 fL (80.0-97.0); Mean Platelet Volume 10.7 fL (9.5-12.2); Platelet Count 273 X 10*3/uL (140-440); RBC 4.45 X 10*6/uL (4.10-5.20); RDW 13.7 % (11.5-14.5); WBC 7.26 X 10*3/uL (4.50-10.00)
[2021-02-05 20:19] LABS: African American GFR (CKD) 139.8 (60.0-200.0); Non-African American GFR(CKD) 120.6 (60.0-200.0)
[2021-02-05 20:37] LABS: HIV 2 AB Non-Reactive (Non-Reactive); HIV AB P24 Non-Reactive (Non-Reactive); HIV P24 AG Non-Reactive (Non-Reactive); Hepatitis B Surface Antigen Non-Reactive (Non-Reactive)
== END | disposition home or self-care (01) ==
LOC: LABWHC1 13:07
PROVIDERS: ATTEND Obstetrics & Gynecology
DX: Z34.81 Encounter for supervision of other normal pregnancy, first trimester (principal)
CPT/HCPCS: 36415; 82565; 82947; 85027; 86762; 86780; 86850; 86900; 86901; 87340; 87390

== ENCOUNTER 2021-08-19 05:53 | Inpatient (IN) | payer OTHER ==
[2021-08-13 13:35] VITALS: BMI 41.6
--- NOTE | 2021-08-18 13:11 | P.HPOB ---
History of Present Illness H&P Date: 08/18/21 Chief Complaint: Repeat C/S and desires tubal ligation. This patient is a pleasant 31 yr female EDC 08/26/2021 estimated gestational age 39 and 0/7 weeks who presents for repeat section and tubal ligation for control. was complicated by history of thin lower uterine segment noted at the time of her last CS. I did refer her time maternal medicine and they did not see any deficits, but advised delivery at 39wks unless labor. has been otherwise uncomplicated. Review of Systems Genitourinary: Reports Menstruation: Reports amenorrhea Past Medical History Past Medical History: No Reported History History of Any Multi-Drug Resistant Organisms: None Reported Past Surgical History: Section Additional Past Surgical History / Comment(s): Patient has had an ovarian cystectomy, uncertain of which side at age [age] years old. 2 previous C/S Past Anesthesia/Blood Transfusion Reactions: No Reported Reaction Smoking Status: Never smoker Past Alcohol Use History: None Reported Past Drug Use History: None Reported - Past Family History Mother Family Medical History: No Reported History Father Family Medical History: Hypertension Medications and Allergies Home Medications Medication Instructions Recorded Confirmed Type Pnv,Calcium 72/Iron/Folic Acid 1 tab PO DAILY 04/04/17 08/13/21 History [ Plus Tablet] Calcium Carbonate/Vitamin D3 1 each PO DAILY 12/05/18 08/13/21 History [Calcium 500-Vit D3 200 Tablet] Allergies Allergy/AdvReac Type Severity Reaction Status Date / Time No Known Allergies Allergy Verified 08/13/21 13:28 Exam - OBG Physical Exam Abdomen: bowel sounds normal, no diffuse tenderness, no bruit present, no guarding noted, no hepatomegaly, no splenomegaly, no mass Vulva: both: normal Vagina: normal moisture, no discharge Cervix: no lesion (Closed), no discharge Uterus: enlarged (Fundal height is 40 cm.) Results bloodwork: O positive, Rubella Immune, [id number]-OWN neg, GBS positive, Normal anatomy/growth ultrasounds. Assessment and Plan Assessment: This is a pleasant 31 yr female 39 wks gestation who presents for repeat C/S and also requesting permanent sterilization. Plan is repeat LT C/S and bilateral partial salpingectomy. I had discussed this surgery and risks: infection, bleeding, possible injury to bowel/bladder/vessels/other organs. She understands that a tubal ligation is permanent although a failure of ~<12/999 procedures could occur. All of her questions were answered and a written consent obtained. (1) Family planning Status: Acute Code(s): Z30.09 - ENCOUNTER FOR OT GENERAL CNSL AND ADVICE ON CONTRACEPTION SNOMED Code(s): 753647338 (2) Group B streptococcal carriage complicating Status: Acute Code(s): O99.820 - STREPTOCOCCUS B CARRIER STATE COMPLICATING NC EGNANCY SNOMED Code(s): 404296986609297 (3) 39 weeks gestation of Status: Acute Code(s): Z3A.39 - 39 WEEKS GESTATION OF SNOMED Code(s): 25669476 (4) Previous delivery affecting Status: Acute Code(s): O34.219 - MATERNAL CARE FOR UNSP TYPE SCAR FROM PREVIOUS DEL SNOMED Code(s): 273117825
[2021-08-19] MEDS ORDERED: LACTATED RINGERS 1,000 ML IV SCH (06:00)
[2021-08-19] MEDS ORDERED: LACTATED RINGERS 1,000 ML IV ONE (06:00)
[2021-08-19] MEDS ORDERED: CITRIC ACID-SODIUM CITRATE 15 ML CUP PO ONE (06:00)
[2021-08-19 06:24] LABS: Basophils % (A) 0 %; Eosinophils # (A) 0.1 k/uL (0-0.7); Eosinophils % (A) 1 %; HCT 39.9 % (34.0-46.0); HGB 13.4 gm/dL (11.4-16.0); Lymphocytes % (A) 15 %; MCH 29.2 pg (25.0-35.0); MCHC 33.5 g/dL (31.0-37.0); Mean Platelet Volume 8.4; Monocytes # (A) 0.7 k/uL (0-1.0); Monocytes % (A) 11 %; Neutrophils # (A) 4.7 k/uL (1.3-7.7); Neutrophils % (A) 70 %; Platelet Count 193 k/uL (150-450); RBC 4.59 m/uL (3.80-5.40); RDW 13.8 % (11.5-15.5); WBC 6.8 k/uL (3.8-10.6)
[2021-08-19] MEDS ORDERED: KETOROLAC 15 MG/ML 1 ML VIAL ONE (07:52)
[2021-08-19] MEDS ORDERED: MORPHINE SULFATE (PF) 0.3 MG/0.3 ML SYR ONE (07:52)
[2021-08-19] MEDS ORDERED: ONDANSETRON 4 MG/2 ML VIAL ONE (07:52)
[2021-08-19] MEDS ORDERED: PHENYLEPHRINE-0.9% NACL SYG 1,000 MCG/10 ML SYRINGE ONE (07:52)
[2021-08-19] MEDS ORDERED: NALBUPHINE 10 MG/ML (1 ML AMP) ONE (07:52)
[2021-08-19] MEDS ORDERED: OXYTOCIN 30 UNITS/500 ML NS BAG IV ONE (07:52)
[2021-08-19] MEDS ORDERED: ZOLPIDEM 5 MG TAB PO PRN (08:33)
[2021-08-19] MEDS ORDERED: LANOLIN CREAM 5 GM TUBE TOPICAL PRN (08:33)
[2021-08-19] MEDS ORDERED: SIMETHICONE 80 MG CHEWABLE PO PRN (08:33)
[2021-08-19] MEDS ORDERED: METOCLOPRAMIDE 5 MG/ML 2 ML VIAL IVP PRN (08:33)
[2021-08-19] MEDS ORDERED: NALOXONE 0.4 MG/ML 1 ML VIAL IV PRN (08:33)
[2021-08-19] MEDS ORDERED: OXYTOCIN 30 UNITS/500 ML NS 30 UNIT in SALINE 1 500ML.BAG IV SCH (08:33)
[2021-08-19] MEDS ORDERED: ONDANSETRON 4 MG/2 ML VIAL IVP PRN (08:33)
[2021-08-19] MEDS ORDERED: diphenhydrAMINE 25 MG CAP PO PRN (08:33)
[2021-08-19] MEDS ORDERED: diphenhydrAMINE 50 MG/ML 1 ML VIAL IVP PRN (08:33)
--- NOTE | 2021-08-19 08:44 | P.OP ---
Date of Procedure: 08/19/21 Preoperative Diagnosis: #1: 39 and 0/7 weeks . #2: previous section 2. #3: Multi parity desires permanent sterilization. 4: Thin lower uterine segment. Postoperative Diagnosis: same Procedure(s) Performed: repeat low transverse section and bilateral partial salpingectomy. Anesthesia: spinal Surgeon: Meir Gaitan Cage Cashier #1: Elizabet Bowman Estimated Blood Loss (ml): 400 Pathology: other (bilateral fallopian tube segments) Condition: stable Disposition: floor Indications for Procedure: Please see dictated H&P for intimate details of this patient's admission. Brief summary this is a pleasant 31-year-old 4 para 2 female 39-0/7 weeks gestation admitted to labor and delivery for elective repeat section and also requesting permanent sterilization. Patient does understand the surgery and risks including risks of infection, bleeding, possible injury bowel, bladder, vessels, and/or other organs. She also understands that a tubal ligation is considered permanent however there is a failure rate of less than 5 per thousand procedures done. Patient's questions are answered and a written consent is obtained. Operative Findings: this is a vigorous viable female Apgars 9 and 9 delivery time was 0808 hrs. Patient had a very thin lower uterine segment. Description of Procedure: This patient is taken to the operating room where she is sat up and spinal anesthetic is administered without incident. She previously had a Velasquez catheter placed to straight drain. With an adequate level of anesthesia she has an abdominal prep and drape. Scalpels taken the previous Pfannenstiel incision is incised. A second scalpel is taken down the fascia and the fascia scored with a knife. Fascial incision extended bilaterally using the Brown scissors. Fascia is then dissected off the rectus muscles sharply. Rectus muscles are the peritoneum was identified and entered sharply. Peritoneal incision extended superior and inferior without difficulty. Bladder blade is then placed. Inspection of the lower uterine segment shows be very thin but intact. With this done I then take a scalpel making incision up high on the uterus it is still transverse in nature. Using a hemostat I gently into the uterine cavity and there is loss of clear fluid. 's head is then gently guided through the incision with fundal pressure delivered. Mouth and nares are bulb suctioned. There is no evidence of nuchal cord. With more fundal pressure we deliver the rest of this infant's body. This is a vigorous viable female Apgars are 9 and 9 delivery time is 0808 hrs. After delivery of the the umbilical cords doubly clamped and cut appears to be trivascular. The placenta is then manually extracted intact. Uterus is then externalized and the uterine incision demarcated with Shahid clamps. Incision is quite thin but it is easily reapproximated with 0 Vicryl in 2 layers. This completed I then turned my attention a left fallopian tube approximately 4 cm from the cornual insertion a small window through the mesial salpinx. Using Bovie cautery I open a window and using 2-0 silk doubly ligated 2 cm segment of the tube. This is doubly ligated on both sides transected and cauterized. With similar technique the right side is done as well. This completed I inspect all incisions and they appear to be hemostatic. Excess fluid is removed from the abdomen and pelvis. Uterus is gently placed back in the abdomen. Final inspection of the tubal ends incision shows to be hemostasis. This done parietal peritoneum was then closed using 0 Vicryl running fashion. Rectus muscles reapproximated in 0 Vicryl interrupted fashion. Fascial incision closed using 0 PDS. Fascial incision is intact and hemostatic. Subcutaneous tissues and closed using a 3-0 Vicryl. Skin is and closed using asher. All counts are correct 3. There are no complications. and mother are taken to her birthing suite in satisfactory condition.
[2021-08-19] MEDS: SENNOSIDES-DOCUSATE SODIUM 1 EACH TAB PO SCH ×2 (10:11→20:46)
[2021-08-19] MEDS: LACTATED RINGERS 1,000 ML IV SCH ×2 (12:30→17:21)
[2021-08-19] MEDS: KETOROLAC 30 MG/ML 1 ML VIAL IVP SCH ×2 (15:16→20:47)
[2021-08-20] MEDS: KETOROLAC 30 MG/ML 1 ML VIAL IVP SCH (02:59)
[2021-08-20] MEDS: LACTATED RINGERS 1,000 ML IV SCH (04:53)
--- NOTE | 2021-08-20 06:17 | P.PNOBGPC ---
Subjective - Subjective Patient reports: Reports appetite normal, Reports voiding normally, Reports pain well controlled, Reports ambulating normally : doing well Objective - Vital Signs Latest vital signs: Vital Signs Temp Pulse Resp BP Pulse Ox 08/20/21 04:00 99.3 F 81 16 119/70 08/19/21 23:43 98.9 F 83 16 108/61 96 08/19/21 19:29 98.0 F 89 17 121/69 99 08/19/21 15:26 98.3 F 73 16 116/63 96 08/19/21 10:36 97.0 F L 58 L 16 102/59 94 L 08/19/21 10:06 58 L 17 110/58 94 L 08/19/21 09:34 97.2 F L 69 17 102/54 95 08/19/21 09:21 61 16 101/55 95 08/19/21 09:06 75 16 87/52 96 08/19/21 08:51 75 17 105/56 98 08/19/21 08:36 96.9 F L 73 16 95/45 97 08/19/21 08:33 97 Intake and Output 08/19/21 08/19/21 08/20/21 14:59 22:59 06:59 Intake Total 1500 Output Total 150 525 Balance -150 975 Intake: IV 1500 Output: Urine 150 525 Uretheral (Velasquez) 250 Other: Voiding Method Indwelling Catheter Indwelling Catheter # Voids 75 - Exam Lungs: bilateral: normal Chest: Normal S1, Normal S2 Extremities: Present: normal Abdomen: Present: normal appearance, soft. Absent: distention, tenderness Incision: Present: normal, dry, intact Uterus: Present: normal, firm Assessment and Plan Assessment: Postoperative day #1. Patient is resting without complaints. Vital signs are stable she's afebrile. Uterus is firm nontender she is having normal lochia. Incision is intact and dry. My impression this is a normal course. Plan is to continue routine postoperative care, check CBC, encourage ambulation, and advance her diet. (1) Family planning Current Visit: No Status: Acute Code(s): Z30.09 - ENCOUNTER FOR OTH GENERAL CNSL AND ADVICE ON CONTRACEPTION SNOMED Code(s): 708285120 (2) Group B streptococcal carriage complicating Current Visit: No Status: Acute Code(s): O99.820 - STREPTOCOCCUS B CARRIER STATE COMPLICATING SNOMED Code(s): 992346041787645 (3) 39 weeks gestation of Current Visit: No Status: Acute Code(s): Z3A.39 - 39 WEEKS GESTATION OF SNOMED Code(s): 86948939 (4) Previous delivery affecting Current Visit: No Status: Acute Code(s): O34.219 - MATERNAL CARE FOR UNSP TYPE SCAR FROM PREVIOUS DEL SNOMED Code(s): 374487629
[2021-08-20 07:43] LABS: Basophils % (A) 0 %; Eosinophils % (A) 1 %; HGB 12.9 gm/dL (11.4-16.0); Lymphocytes # (A) 1.2 k/uL (1.0-4.8); Lymphocytes % (A) 16 %; MCH 28.8 pg (25.0-35.0); MCHC 32.4 g/dL (31.0-37.0); MCV 89.1 fL (80.0-100.0); Mean Platelet Volume 9.1; Monocytes # (A) 0.6 k/uL (0-1.0); Monocytes % (A) 9 %; Neutrophils # (A) 5.3 k/uL (1.3-7.7); Neutrophils % (A) 71 %; Platelet Count 161 k/uL (150-450); RBC 4.49 m/uL (3.80-5.40); RDW 13.5 % (11.5-15.5); WBC 7.5 k/uL (3.8-10.6)
--- NOTE | 2021-08-20 08:35 | P.PN ---
Progress Note - Text Date: 08/20/2021 Time: 07:07 The patient is status post section Vital signs stable VAS:[ 0-10] Patient has no complaints of pain. The patient incurred some minimal itching yesterday, this itching is now subsiding. Pain meds to be managed by service.
[2021-08-20] MEDS: IBUPROFEN 600 MG TAB PO PRN ×3 (09:01→21:26)
[2021-08-20] MEDS: SENNOSIDES-DOCUSATE SODIUM 1 EACH TAB PO SCH ×2 (15:56→21:25)
[2021-08-20] MEDS: ACETAMINOPHEN TAB 500 MG TAB PO PRN (18:24)
[2021-08-21] MEDS: ACETAMINOPHEN TAB 500 MG TAB PO PRN ×2 (00:41→06:35)
[2021-08-21 01:31] VITALS: TEMP 97.8
[2021-08-21] MEDS: IBUPROFEN 600 MG TAB PO PRN (04:22)
[2021-08-21 08:32] VITALS: BP 112/72; PULSE 81; RESP 14
[2021-08-21] MEDS: SENNOSIDES-DOCUSATE SODIUM 1 EACH TAB PO SCH (08:33)
--- NOTE | 2021-08-21 08:54 | P.DS ---
Providers Date of admission: 08/19/21 05:53 Expected date of discharge: 08/21/21 Attending physician: Meir Gaitan Primary care physician: [facility] Course: Patient is doing very well postop day 2. She is ambulating, voiding and tolerating her diet. She voices no complaints. We'll plan to remove asher prior to discharge which she is requesting for today. Discharge instructions were thoroughly reviewed and all questions were answered for her prior to her discharge. Prescriptions for her medications were Timothy for to the pharmacy. All questions are answered for her. On physical exam vital signs are stable and afebrile. Heart regular, lungs clear, extremities without pain. Abdomen is soft, incision is clean dry and intact and bowel sounds are noted. Assessment postop day 2. Plan discharged home follow up with Dr. Gaitan as directed Patient Condition at Discharge: Good Plan - Discharge Summary Discharge Rx Participant: Yes New Discharge Prescriptions: New Ibuprofen [Motrin] 600 mg PO Q6H PRN #30 tab PRN Reason: Pain oxyCODONE HCL [OxyIR] 5 mg PO Q4HR PRN #18 tab PRN Reason: Pain No Action Pnv,Calcium 72/Iron/Folic Acid [ Plus Tablet] 1 tab PO DAILY Calcium Carbonate/Vitamin D3 [Calcium 500-Vit D3 200 Tablet] 1 each PO DAILY Discharge Medication List Pnv,Calcium 72/Iron/Folic Acid [ Plus Tablet] 1 tab PO DAILY 04/04/17 [History] Calcium Carbonate/Vitamin D3 [Calcium 500-Vit D3 200 Tablet] 1 each PO DAILY 12/05/18 [History] Ibuprofen [Motrin] 600 mg PO Q6H PRN #30 tab 08/20/21 [Rx] oxyCODONE HCL [OxyIR] 5 mg PO Q4HR PRN #18 tab 08/20/21 [Rx] Follow up Appointment(s)/Referral(s): Meir Gaitan MD [STAFF PHYSICIAN] - 09/28/21 2:15 pm (Please come for an incision check on 08-27-2021 at 08:30) Patient Instructions/Handouts: (DC) Activity/Diet/Wound Care/Special Instructions: No heavy lifting or strenuous activities for 6 weeks. Please call if any fever, chills, excessive vaginal bleeding, and/or abdominal pain. No intercourse or any anything per vagina for 6 weeks. Discharge Disposition: HOME SELF-CARE
== END 2021-08-21 11:30 | disposition home or self-care (01) | DRG 785 ==
LOC: 4FBP 05:53
PROVIDERS: ADMIT Obstetrics & Gynecology; ATTEND Obstetrics & Gynecology
PROC: 0UB70ZZ Excision of Bilateral Fallopian Tubes, Open Approach (ICD-10-PCS; 2021-08-19)
PROC: 10D00Z1 Extraction of Products of Conception, Low, Open Approach (ICD-10-PCS; principal; 2021-08-19 08:00)
DX: O34.211 Maternal care for low transverse scar from previous cesarean delivery (principal); O99.824 Streptococcus B carrier state complicating childbirth; O99.73 Diseases of the skin and subcutaneous tissue complicating the puerperium; L29.9 Pruritus, unspecified; Z30.2 Encounter for sterilization; Z37.0 Single live birth; Z3A.39 39 weeks gestation of pregnancy
CPT/HCPCS: 85025; 86850; 86900; 86901; 88302

== ENCOUNTER → 2022-03-16 | Outpatient (CLI) | payer OTHER ==
--- NOTE | 2022-03-16 21:11 | MR ---
EXAMINATION TYPE: MR brain wo con DATE OF EXAM: 03/16/2022 7:31 PM COMPARISON: None. CLINICAL INDICATION:Female, 31 years old with history of R51.9 Headache unspecified; TECHNIQUE: Multi planar, multi sequence imaging was performed through the brain including: T1, T2, In version recovery, Diffusion weighted imaging, and gradient echo imaging. No gadolinium was given. FINDINGS: The miller-white junctions, ventricular system, and cisterns appear unremarkable. Patchy areas of high T2 signal intensity are seen within the periventricular white matter. Midline structures show no abn ormality. Diffusion-weighted imaging shows no evidence of restricted diffusion. The susceptibility we ighted images do not reveal any evidence for micro-hemorrhage. The bone marrow signal is within normal limits. The paranasal sinuses and globes are unremarkable. IMPRESSION: No evidence of intracranial mass or acute/subacute infarct.
== END | disposition home or self-care (01) ==
LOC: RADMRIMAIN 18:25
PROVIDERS: ATTEND Family Medicine
DX: G44.209 Tension-type headache, unspecified, not intractable (principal)
CPT/HCPCS: 70551